=== PATIENT | male | born 1955 | race American Indian/Alaskan Native ===

== ENCOUNTER 2018-07-26 05:59 | Day surgery (SDC) | payer OTHER ==
[2018-07-26] MEDS ORDERED: NACL 0.9% 1000 ML 1,000 ML IV SCH (07:00)
[2018-07-26] MEDS ORDERED: WATER FOR IRRIG STERILE ONE (07:26)
[2018-07-26] MEDS ORDERED: VERSED ONE (07:36)
[2018-07-26] MEDS ORDERED: XYLOCAINE 1% 20 mL ONE (07:36)
[2018-07-26] MEDS ORDERED: DIPRIVAN 10 MG/ML IV ONE ×3 (07:36→07:37)
--- NOTE | 2018-07-26 08:09 | Anesthesia Day of Surgery ---
Anesthesia Day of Surgery - Day of Surgery Patient Examined: Yes Patient H&P Reviewed: Yes Patient is NPO: Yes
--- NOTE | 2018-07-26 08:13 | Anesthesia Consultation ---
Anesthesia Consult and Med Hx Date of service: 07/26/18 - Airway Anesthetic Teeth Evaluation: Good ROM Head & Neck: Adequate Mental/Hyoid Distance: Adequate Mallampati Class: Class II Intubation Access Assessment: Probably Good - Pre-Operative Health Status ASA Pre-Surgery Classification: ASA3 Proposed Anesthetic Plan: MAC - Cardiovascular System Hx Hypertension: Yes (high cholesterol) - Central Nervous System Hx Back Pain: Yes Hx Psychiatric Problems: Yes (depression) - Endocrine Hx Non-Insulin Dependent Diabetes: Yes - Additional Comments Anesthesia Medical History Comments: sarcoidosis. Limited mobility, use's walker.
--- NOTE | 2018-07-26 09:01 | Procedure Note ---
Date of procedure: 07/26/18 Pre-op diagnosis: GERD/ Colon Polyp Screening Post-op diagnosis: other (Moderate, Distal Erosive Esophagitis/Gastric Erosion/Gastritis/Duodenitis/ Extensive, Diverticular Disease (most pronounced in the Left Colon)/ Minor,Internal Hemorrhoids/ No Colon Polyps noted) Procedure: EGD with Biopsy and Colonoscopy Anesthesia: [facility] [place] Surgeon: CASEY CELAYA Estimated blood loss: minimal Pathology: list Specimen disposition: to lab Condition: stable Disposition: same day (Treat with PPI and encourage fiber intake. Resume home medication but hold aspirin and NSAID for 5 days and follow up in 1 to 2 weeks ([phone]).)
[2018-07-26 09:37] VITALS: BP 123/80
--- NOTE | 2018-07-26 09:50 | Operative Report ---
INDICATIONS: This is a 62-year-old -[place] gentleman with a prior history of colon polyps. Last colonoscopy was done 10 years ago. He does have a family history of cancer. The patient's grandmother had ovarian cancer. Colonoscopy was done to assess for any recurrence of any polyps. DESCRIPTION OF PROCEDURE: The procedure was done after getting informed consent. Colonoscopy was done following an EGD that showed presence of esophagitis, gastritis. Biopsies were done during the EGD. Initial rectal exam was unremarkable. Instrument was passed through the rectum onto the cecum, which was identified with the ileocecal valve and the appendiceal orifice. Visualization was fair to good. The scope was retroflexed and the cecum did not show any additional pathology. The scope was withdrawn up to the hepatic flexure and reintroduced and again no additional findings were noted. The patient was noted to have scattered, deep and moderately severe diverticular disease noted throughout the colon, most pronounced in the left colon and the rectum showed some minor internal hemorrhoids on the retroverted view. Biopsies were none and no bleeding associated with the colonoscopy. No complications associated with the procedure. ASSESSMENT: Colon polyp screening, no colon polyps noted. Extensive diverticular disease, most pronounced in the left colon, but was scattered throughout the colon. Minor internal hemorrhoid. PLAN: Plan is to encourage the patient to take fiber supplements, have the patient follow up in the office in 1-2 weeks' time. Again, there was no bleeding or complications associated with the colonoscopy. The patient will be asked to avoid aspirin and aspirin-related products since the patient did have some biopsies done with the EGD and Ligia BERRY was in the room throughout the entirety of the procedure. JOB# [id number] BERNICE/HEBERT
--- NOTE | 2018-07-26 09:56 | Operative Report ---
INDICATIONS: A 62-year-old -[place] gentleman who has been complaining of GERD symptoms. The EGD was done to assess for the severity of the symptoms and to do biopsies if needed. DESCRIPTION OF PROCEDURE: Procedure was done after getting informed consent with MAC anesthesia. Instrument was passed through the hypopharynx into the esophagus, which showed moderate distal erosive esophagitis. Biopsy was done also to assess for the severity of the esophagitis and to rule out for any associated Sher's esophagus. Stomach showed gastric erosion and gastritis. Biopsy was done from the gastric antrum, the gastric body and the angularis incisura to rule out for H. pylori and atrophic gastritis. The pylorus was patent. The duodenum and the bulb showed some mild duodenitis. There was minimal bleeding from the biopsy sites. No complications associated with the procedure. ASSESSMENT: Gastroesophageal reflux disease symptoms, moderate distal erosive esophagitis, rule out Sher's esophagus, gastric erosion, gastritis, duodenitis. Plan is to treat the patient with PPI, have the patient avoid aspirin and aspirin-related products for the next few days and to do a colonoscopy as part of colon polyp screening as the patient has a family history of cancer, the patient's grandmother had ovarian cancer. Thank you very much. RN, Ligia Birch was in the room with me throughout the entirety of the procedure. JOB# [id number] BERNICE/HEBERT
== END 2018-07-26 06:00 | disposition home or self-care (01) ==
LOC: GIO 05:59
DX: Z12.11 Encounter for screening for malignant neoplasm of colon (principal); K29.50 Unspecified chronic gastritis without bleeding; K21.0 Gastro-esophageal reflux disease with esophagitis; K57.30 Diverticulosis of large intestine without perforation or abscess without bleeding; E78.00 Pure hypercholesterolemia, unspecified; I10 Essential (primary) hypertension; E11.9 Type 2 diabetes mellitus without complications; Z86.010 Personal history of colon polyps; Z80.41 Family history of malignant neoplasm of ovary; Z80.0 Family history of malignant neoplasm of digestive organs; Z79.899 Other long term (current) drug therapy; Z79.84 Long term (current) use of oral hypoglycemic drugs; Z98.890 Other specified postprocedural states
CPT/HCPCS: 43239; 45378; 82962; 88305; 88342; J2250; J2704; J7030